=== PATIENT | male | born 1955 | race Hispanic/Latino ===

== ENCOUNTER 2024-02-17 16:01 | Emergency (ER) | payer MEDICARE, OTHER, SELFPAY ==
[2024-02-17 16:08] VITALS: BP 144/76
--- NOTE | 2024-02-17 16:33 | ED.GENMED ---
History of Present Illness
<Marija Valadez PA-C - Last Filed: 02/17/24 23:26>
General
Chief Complaint: Skin Problem
Source: patient
Exam Limitations: none
Time Seen by Provider: 02/17/24 16:20
Nursing documentation reviewed up to this point in time: agreed with
History of Present Illness
History of Present Illness:
Patient is a 68-year-old male with history hypertension, hyperlipidemia presenting to the emergency department for tetanus shot. Patient states that he was down in his basement barefoot tearing up carpet after his sump pump overflowed. He states
that when he pulled up one of the piece of carpet he accidentally stepped on a few very small nails. Patient states that no nails were stuck in his skin. Patient only had 1 very small area of bleeding initially that stopped quickly. Patient
states that he was able to immediately wash his right foot with soap and water. Patient has been ambulating independently without difficulty.
Patient realized that he has not had a tetanus shot since the and decided to come to the emergency department for the vaccination.
Past History
<Marija Valadez PA-C - Last Filed: 02/17/24 23:26>
Past History
ED Past Medical History: HTN, Hypercholesterolemia and Other (BPH)
ED Past Surgical History: Orthopedic
Social History
Tobacco: Non-smoker
Personal:
Living: with family
Employment: Employed
Review of Systems
<Marija Valadez PA-C - Last Filed: 02/17/24 23:26>
Review of Systems
Allergies reviewed?: Yes
All Other Systems: ROS reviewed and negative except as documented in HPI and ROS
Phy Exam
<Marija Valadez PA-C - Last Filed: 02/17/24 23:26>
Physical Exam
Physical Exam:
Vitals: Patient's vital signs are stable. Afebrile
General: Patient is very well appearing, no acute distress. Nontoxic-appearing
Skin: Warm and dry, no rashes or lesions
Head: Normocephalic, atraumatic
Throat: Protecting airway
Neck: Normal ROM
Cardiac: Regular rate and rhythm, no murmurs.
Pulm: Normal respiratory effort, no wheezes, rales, rhonchi heard on exam.
Extremities: Bilateral upper and lower extremities atraumatic and nontender with full range of motion. Very small pinpoint puncture on sole of right fourth digit without any retained foreign body. No surrounding erythema or edema. strength 5 out
of 5 in RLE. Palpable and equal DP and PT pulses of bilateral lower extremities. No evidence of cyanosis or edema.
Neuro: AAOx3. Grossly intact
Psychiatric: Normal affect.
Course
<Marija Valadez PA-C - Last Filed: 02/17/24 23:26>
Orders/Labs/Results
Orders:
Orders
02/17/24 16:28
Tetanus/Diphth/Acelpertussis [Adacel] 0.5 ml IM .ONCE ONE
Vital Signs
Initial and Last Documented VS:
Initial Vital Signs
Temp Pulse Resp BP Pulse Ox
97.5 F 85 18 144/76 99
02/17/24 16:08 02/17/24 16:08 02/17/24 16:08 02/17/24 16:08 02/17/24 16:08
Last Documented Vital Signs
Temp Pulse Resp BP Pulse Ox
97.5 F 85 18 144/76 99
02/17/24 16:08 02/17/24 16:08 02/17/24 16:08 02/17/24 16:08 02/17/24 16:08
<Delmi Agudelo DO - Last Filed: 02/17/24 17:08>
Orders/Labs/Results
Orders:
Orders
02/17/24 16:28
Tetanus/Diphth/Acelpertussis [Adacel] 0.5 ml IM .ONCE ONE
Vital Signs
Initial and Last Documented VS:
Initial Vital Signs
Temp Pulse Resp BP Pulse Ox
97.5 F 85 18 144/76 99
02/17/24 16:08 02/17/24 16:08 02/17/24 16:08 02/17/24 16:08 02/17/24 16:08
Last Documented Vital Signs
Temp Pulse Resp BP Pulse Ox
97.5 F 85 18 144/76 99
02/17/24 16:08 02/17/24 16:08 02/17/24 16:08 02/17/24 16:08 02/17/24 16:08
<Marija Valadez PA-C - Last Filed: 02/17/24 23:26>
MDM/Problems Addressed
Differential Diagnosis Includes:
Not limited to: Minor puncture wound
MDM/Problems Addressed:
Patient is a 68 year old male presenting for tetanus vaccination. Patient stepped on small thin carpet nails about 1 hour ago while attempting to remove carpet in basement. Patient was barefoot. Bleeding stopped almost immediately. Wound immediately
irrigated. No other injuries sustained. Vitals stable. Physical exam as above. Patient has pinpoint puncture wound of right sole of 4th toe not actively bleeding. No surrounding erythema, edema, or signs of cellulitis. No evidence of retained
foreign body. Patient has full sensation in right foot with great distal pulses. No indication for imaging at this time. Patient received TDAP booster. No indication for antibiotic therapy at this time. Patient was advised to monitor for signs of
infection. Stable for discharge.
Chronic conditions affecting care:
N/A
Acute Exacerbation and/or Progression of Chronic Illness:
N/A
<Marija Valadez PA-C - Last Filed: 02/17/24 23:26>
*Pulse Oximetry
Patient hypoxic: no
*EKG
Interpreted by ED Provider?: NA
*Ammonia Nitrate Operator Interpretation
Rate: Ammonia Nitrate Operator- N/A
*Critical Care Note
Total Time (30-74mins, 75-104mins- exclusive of procedures): Not Applicable
ED Attending Note
<Marija Valadez PA-C - Last Filed: 02/17/24 23:26>
-
Portions of this chart may have been created with voice recognition software.� Occasional wrong word or��sound alike� substitutions may have occurred due to the inherent limitations of voice recognition software.
<Delmi Agudelo DO - Last Filed: 02/17/24 17:08>
ED Attending Note
Patient seen and examined by attending physician: Yes
I performed the substantive portion of visit, reviewed & personally made and approve the management plan that is documented in note by myself or ARINA.: Yes
I performed a history and physical exam of patient and discussed management with resident, I reviewed resident's note and agree with documented findings and plan of care.: Yes
ED Attending Note:
Patient seen and examined at bedside. 68-year-old male presenting after he stepped on a carpet nail, right fourth toe. Notes small break in the skin. He presents for tetanus shot. Denies any significant pain or bleeding. Denies numbness or
tingling. Vitals within normal limits. On exam, small puncture wound at the fourth toe, plantar area. No swelling or deformity. No redness or erythema. Do not feel patient requires any advanced imaging. No sign of foreign body. Will update
tetanus. No indication for antibiotics. Feel stable for discharge. Return precautions discussed.
Discharge Plan
Departure
Patient Disposition: Home (Routine Discharge)
Date of Disposition: 02/17/24
Time of Disposition: 16:57
Patient with high blood pressure during this ER visit?: Yes
Condition: Good
Covid-19: Not Applicable
Discharge Problem:
Injury of foot, right, Tetanus-diphtheria (Td) vaccination
Prescriptions:
No Action
atorvastatin 20 MG tablet
20 mg PO QPM
aspirin 325 MG tablet
325 mg PO DAILY
lisinopril 20 MG tablet
20 mg PO DAILY
tamsulosin 0.4 MG capsule
0.8 mg PO DAILY
Activity Restrictions/Additional Instructions:
RETURN TO THE EMERGENCY DEPARTMENT WITH ANY FEVERS, CHILLS, SIGNIFICANT REDNESS, SWELLING, OR PAIN AROUND WOUND, RED STREAKING AWAY FROM WOUND, WORSENING IN CURRENT SYMPTOMS, OR ANY OTHER CONCERNS
-As discussed - you should keep area clean and dry. Wash gently with soap and water every day. Continue to monitor for signs of infection and return to the emergency department/primary care with any evidence of developing infection.
Interventions
Interventions:
*Risk Screen - Suicide Last Done: 02/17/24 17:09
*General Assessment Last Done: 02/17/24 17:09
*Neglect/Abuse Screening Last Done: 02/17/24 17:09
ED- Fall Risk Assessment Last Done: 02/17/24 17:09
*ED COVID-19 Vaccine History Last Done: 02/17/24 17:09
*Nursing Disposition Last Done: 02/17/24 17:09
ED-Skin Assessment Last Done: 02/17/24 17:09
Discharge Date and Time
Discharge Date/Time: 02/17/24 17:10
Print Language: CITIZEN OF [place]
[2024-02-17] MEDS: ADACEL 0.5 ML IM (16:38)
== END 2024-02-17 17:10 | disposition home or self-care (01) ==
LOC: EMR 16:01
PROVIDERS: EMERGENCY PHYSICIAN Student in an Organized Health Care Education/Training Program; FAMILY PHYSICIAN Internal Medicine
DX: S99.921A Unspecified injury of right foot, initial encounter (principal); X58.XXXA Exposure to other specified factors, initial encounter; Z23 Encounter for immunization; I10 Essential (primary) hypertension; E78.00 Pure hypercholesterolemia, unspecified; N40.0 Benign prostatic hyperplasia without lower urinary tract symptoms
CPT/HCPCS: 99282; 90471; 90715

== ENCOUNTER → 2024-06-30 10:13 | Outpatient (REF) | payer MEDICARE, OTHER, SELFPAY ==
[2024-06-30 11:07] LABS: % Basophils 0.2 % (0-2); % Immature Granulocytes 0.2 % (0-0.5); % Lymphocytes 30.5 % (20.5-51.1); % Monocytes 9.5 % (1.7-9.3); % Neutrophils 53.6 % (42.2-75.2); Absolute Eosinophils 0.3 10^3/uL (0-0.7); Absolute Lymphocytes 1.5 10^3/uL (1.2-3.4); Absolute Monocytes 0.5 10^3/uL (0.1-0.6); Absolute Neutrophils 2.6 10^3/uL (1.4-6.5); Hematocrit 44.7 % (39.0-52.0); Hemoglobin 14.9 g/dL (13.0-18.0); Mean Corp Hgb Conc. 33.3 g/dL (33.0-37.0); Mean Corpuscular Hgb 30.6 pg (27.0-31.0); Mean Corpuscular Volume 91.8 fL (80.0-94.0); Nucleated Red Blood Cells % 0 % (-); Platelet Count 169 10^3/uL (130-400); Red Blood Cell Count 4.87 10^6/uL (4.70-6.10); White Blood Cell Count 4.9 10^3/uL (4.8-10.8)
[2024-06-30 11:46] LABS: ALT (SGPT) 30 U/L (0-50); AST (SGOT) 42 U/L (17-59); Albumin 4.7 g/dl (3.5-5.0); Alkaline Phosphatase 56 U/L (38-126); Blood Urea Nitrogen 22 mg/dl (9-20); Calcium 9.8 mg/dl (8.4-10.2); Carbon Dioxide 28 mmol/L (22-30); Chloride 99 mmol/L (98-107); Glucose 106 mg/dl (70-99); Potassium 4.4 mmol/L (3.5-5.1); Sodium 139 mmol/L (135-145); Total Bilirubin 0.7 mg/dl (0.2-1.3); Total Cholesterol 260 mg/dl (50-199); Total Protein 7.7 g/dl (6.3-8.2); Triglyceride 75 mg/dl (10-149); Very Low Density Lipoprotein 15 mg/dl (0-30); eGFR > 60.00
[2024-06-30 11:55] LABS: Urine Albumin Negative (Neg - Trace); Urine Bilirubin Negative (Negative); Urine Character Clear (Clear); Urine Color Straw; Urine Glucose Negative (Negative); Urine Ketone Negative (Negative); Urine Leukocyte Trace (Negative); Urine Nitrite Negative (Negative); Urine Occult Blood Negative (Negative); Urine Specific Gravity 1.005 (<1.030); Urine Urobilinogen Negative (Neg - 1+); Urine pH 6.5 (5.0-9.0)
[2024-06-30 11:56] LABS: HDL Cholesterol 128 mg/dl; LDL Cholesterol, Calculated 117 mg/dl
[2024-06-30 12:06] LABS: PSA, Total - Screen 3.61 ng/ml (0.0-4.0)
[2024-06-30 12:46] LABS: Urine Bacteria Few (Negative); Urine Red Blood Cell 0-2 /HPF (0-2); Urine Urothelial Cell 0-2 /LPF (FEW); Urine White Cell 0-2 /HPF (0-5)
== END ==
LOC: REG 10:13
PROVIDERS: ATTENDING PHYSICIAN Internal Medicine
DX: I10 Essential (primary) hypertension (principal); E78.2 Mixed hyperlipidemia; N40.0 Benign prostatic hyperplasia without lower urinary tract symptoms; N18.9 Chronic kidney disease, unspecified; Z12.5 Encounter for screening for malignant neoplasm of prostate
CPT/HCPCS: 36415; 80053; 80061; 81003; 81015; 85025; G0103

== ENCOUNTER → 2024-11-21 09:23 | Outpatient (REF) | payer MEDICARE, OTHER, SELFPAY ==
[2024-11-21 11:16] LABS: Albumin 4.8 g/dl (3.5-5.0); Blood Urea Nitrogen 21 mg/dl (9-20); Chloride 102 mmol/L (98-107); Glucose 104 mg/dl (70-99); Total Cholesterol 243 mg/dl (50-199); Total Protein 7.2 g/dl (6.3-8.2); eGFR > 60.00
[2024-11-21 11:26] LABS: ALT (SGPT) 28 U/L (0-50); AST (SGOT) 44 U/L (17-59); Alkaline Phosphatase 57 U/L (38-126); Calcium 9.4 mg/dl (8.4-10.2); Carbon Dioxide 23 mmol/L (22-30); Potassium 4.1 mmol/L (3.5-5.1); Sodium 136 mmol/L (135-145); Triglyceride 82 mg/dl (10-149); Very Low Density Lipoprotein 16 mg/dl (0-30)
[2024-11-21 11:37] LABS: HDL Cholesterol 128 mg/dl; LDL Cholesterol, Calculated 99 mg/dl
== END ==
LOC: REG 09:23
PROVIDERS: ATTENDING PHYSICIAN Internal Medicine
DX: E78.5 Hyperlipidemia, unspecified (principal); E87.1 Hypo-osmolality and hyponatremia
CPT/HCPCS: 36415; 80053; 80061

== ENCOUNTER 2024-11-24 06:25 | Day surgery (SDC) | payer MEDICARE, OTHER, SELFPAY | END 2024-11-24 11:16 | disposition home or self-care (01) | LOC: GI 06:25 | PROVIDERS: ATTENDING PHYSICIAN Internal Medicine Gastroenterology | DX: Z12.11 Encounter for screening for malignant neoplasm of colon (principal); K57.30 Diverticulosis of large intestine without perforation or abscess without bleeding; K64.0 First degree hemorrhoids; D12.2 Benign neoplasm of ascending colon | CPT/HCPCS: 45385; 88305 ==

== ENCOUNTER → 2025-05-19 10:05 | Outpatient (REF) | payer MEDICARE, OTHER, SELFPAY ==
[2025-05-19 11:31] LABS: Hematocrit 41.9 % (39.0-52.0); Hemoglobin 14.5 g/dL (13.0-18.0); Mean Corp Hgb Conc. 34.6 g/dL (33.0-37.0); Mean Corpuscular Volume 89.1 fL (80.0-94.0); Nucleated Red Blood Cells % 0 % (-); Platelet Count 159 10^3/uL (130-400); Red Cell Dist. Width 12.7 % (11.5-14.5)
[2025-05-19 11:53] LABS: Urine Character Clear (Clear)
[2025-05-19 11:58] LABS: ALT (SGPT) 28 U/L (0-50); AST (SGOT) 34 U/L (17-59); Albumin 4.5 g/dl (3.5-5.0); Alkaline Phosphatase 55 U/L (38-126); Blood Urea Nitrogen 16 mg/dl (9-20); Calcium 9.7 mg/dl (8.4-10.2); Carbon Dioxide 27 mmol/L (22-30); Chloride 102 mmol/L (98-107); Glucose 104 mg/dl (70-99); Potassium 4.4 mmol/L (3.5-5.1); Sodium 134 mmol/L (135-145); Total Protein 7.4 g/dl (6.3-8.2); Very Low Density Lipoprotein 13 mg/dl (0-30); eGFR > 60.00
[2025-05-19 12:09] LABS: HDL Cholesterol 150 mg/dl; LDL Cholesterol, Calculated 88 mg/dl
[2025-05-19 12:25] LABS: PSA, Total - Screen 1.86 ng/ml (0.0-4.0); TSH 0.89 uIU/ml (0.47-4.68)
== END ==
LOC: REG 10:05
PROVIDERS: ATTENDING PHYSICIAN Internal Medicine
DX: I10 Essential (primary) hypertension (principal); E78.2 Mixed hyperlipidemia; N40.0 Benign prostatic hyperplasia without lower urinary tract symptoms; N18.2 Chronic kidney disease, stage 2 (mild); Z23 Encounter for immunization
CPT/HCPCS: 36415; 80053; 80061; 81003; 84443; 85025; G0103